=== PATIENT | female | born 1930 | race Asian ===

== ENCOUNTER 2016-07-17 13:24 | Emergency (ER) | payer OTHER ==
--- NOTE | ~2016-07-17 | CR94 ---
[facility] A Service of [facility] & [facility] RADIOLOGY TEXT RESULTS PATIENT: DESTINEE COLBERT LOCATION: [facility] : 32 UNIT #: [id number] AGE: [address]: Riley Brothers MD SEX: F ORDER DR: [id number] [facility] [address] [place], [place] [address] [id number] E MR#: [id number] Acc #: [id number] NAME: DESTINEE COLBERT. : 1930 SEX: F STUDY DATE/TIME: 07/17/2016 14:13 UNIT: [facility] ROOM: STUDY DESCRIPTION: CR Elbow Min 3 Views Rt Attending Physician: Riley Brothers M.D. Ordering Physician: Riley Brothers M.D. Primary Care Physician: Akila Tomas M.D. MEDICAL IMAGING REPORT This report is preliminary unless electronic signature is present EXAM Right elbow 3 views 07/17/2016 HISTORY Elbow pain after fall 5 days ago. FINDINGS 3 views of the right elbow demonstrate satisfactory bone alignment. No fracture, joint space narrowing or dislocation. No effusion. Generalized demineralization. IMPRESSION 1. No fracture. No acute finding. 2. Generalized demineralization. Dictated by... Nate Dwyer M.D. THIS IS AN ELECTRONICALLY VERIFIED REPORT Nate Dwyer M.D. at 07/17/2016 11:39 PM ETHAN/pramod TD: 07/17/2016 17:45 JOB #: [id number] MEDICAL IMAGING REPORT Page 1 of 1 COPY
--- NOTE | ~2016-07-17 | CR142 ---
[facility] A Service of [facility] & [facility] RADIOLOGY TEXT RESULTS PATIENT: DESTINEE COLBERT LOCATION: [facility] : 32 UNIT #: [id number] AGE: [address]: Riley Brothers MD SEX: F ORDER DR: [id number] [facility] [address] [place], [place] [address] [id number] E MR#: [id number] Acc #: [id number] NAME: DESTINEE COLBERT. : 1930 SEX: F STUDY DATE/TIME: 07/17/2016 14:11 UNIT: [facility] ROOM: STUDY DESCRIPTION: CR Hand Min 3 Views Rt Attending Physician: Riley Brothers M.D. Ordering Physician: Riley Brothers M.D. Primary Care Physician: Akila Tomas M.D. MEDICAL IMAGING REPORT This report is preliminary unless electronic signature is present EXAM Right hand 3 views 07/17/2016 HISTORY Hand pain after fall 5 days ago. FINDINGS 3 views of the right hand demonstrate transverse fracture through the distal radial metaphysis with slight fracture impaction and minimal volar angulation of the distal fracture fragment. There is also a transverse fracture through the tip the ulnar styloid process with 2 mm separation of the 3 mm fracture fragment. There is hyperextension at the IP joint of the thumb. Generalized demineralization with several focal areas of benign-appearing sclerosis in the middle and distal phalanges. Mild degenerative changes in the wrist. IMPRESSION 1. Transverse fracture distal radial metaphysis with slight fracture impaction and minimal volar angulation of the fracture apex. 2. Transverse fracture at the tip of the ulnar styloid process with 2 mm separation of the 3 mm fracture fragment. 3. Generalized demineralization. 4. Hyperextension at the IP joint of the thumb. Dictated by... Nate Dwyer M.D. THIS IS AN ELECTRONICALLY VERIFIED REPORT Nate Dwyer M.D. at 07/17/2016 11:39 PM ETHAN/pramod TD: 07/17/2016 17:39 JOB #: [id number] [facility] A Service of [facility] & [facility] RADIOLOGY TEXT RESULTS PATIENT: DESTINEE COLBERT LOCATION: [facility] : 32 UNIT #: [id number] AGE: [address]: Riley Brothers MD SEX: F ORDER DR: MEDICAL IMAGING REPORT Page 1 of 1 COPY
--- NOTE | ~2016-07-17 | CR210 ---
[facility] A Service of [facility] & [facility] RADIOLOGY TEXT RESULTS PATIENT: DESTINEE RENNER LOCATION: [facility] : 32 UNIT #: [id number] AGE: [address]: Riley Brothers MD SEX: F ORDER DR: [id number] [facility] [address] [place], [place] [address] [id number] E MR#: [id number] Acc #: [id number] NAME: DESTINEE RENNER. : 1930 SEX: F STUDY DATE/TIME: 07/17/2016 14:18 UNIT: [facility] ROOM: STUDY DESCRIPTION: CR Ribs Uni 2 View W PA Ch Lt Attending Physician: Riley Brothers M.D. Ordering Physician: Riley Brothers M.D. Primary Care Physician: Akila Tomas M.D. MEDICAL IMAGING REPORT This report is preliminary unless electronic signature is present EXAM Left rib series 07/17/2016 INDICATIONS Left rib pain for 5 days. COMPARISON STUDIES No comparisons FINDINGS Study limited due to patient positioning. There is no obvious displaced rib fracture within the limitations of the study. Prior vertebral augmentation in the lumbar spine. IMPRESSION No obvious displaced rib fracture. Dictated by... Al Renner M.D. THIS IS AN ELECTRONICALLY VERIFIED REPORT Al Renner M.D. at 07/18/2016 10:00 AM JAMES/pramod TD: 07/17/2016 17:58 JOB #: [id number] MEDICAL IMAGING REPORT Page 1 of 1 COPY
[~2016-07-17 13:24] MED LIST: FISH OIL 1,21 CAP.EC PO; HYDROCODONE-APA1 T41 PO; LEVOXYL100 MCG PO; MULTIPLE VITAMI1 T11 PO; PERCOCET 51 UDTAB 5/ PO; TYLOX1 CAP 5/50 PO
== END 2016-07-17 15:38 | disposition home or self-care (01) ==
LOC: CED 13:24
DX: S52.501A Unspecified fracture of the lower end of right radius, initial encounter for closed fracture (principal); S52.611A Displaced fracture of right ulna styloid process, initial encounter for closed fracture; S50.01XA Contusion of right elbow, initial encounter; W22.03XA Walked into furniture, initial encounter; Y92.009 Unspecified place in unspecified non-institutional (private) residence as the place of occurrence of the external cause
CPT/HCPCS: 29125; 29260; 71101; 73080; 73130; 99284